=== PATIENT | female | born 1965 | race Caucasian/White ===

== ENCOUNTER 2018-07-10 21:04 | Observation (INO) ==
[2018-07-10] MEDS ORDERED: levETIRAcetam 1,000 MG in 0.9 % Sodium Chloride 100 ML IVPB ONE (21:10)
--- NOTE | 2018-07-10 21:15 | Emergency Department Note ---
Disposition Clinical Impression: Generalized seizure Altered mental status Qualifiers: Altered mental status type: disorientation Qualified Code(s): R41.0 - Disorientation, unspecified Disposition: Admitted As Inpatient Condition: Undetermined Time of Disposition: 00:11 Seizure HPI - General Chief Complaint: ED Seizure Stated Complaint: Siezure Time Seen by Provider: 07/10/18 21:09 Source: patient, EMS Mode of arrival: EMS Limitations: other (Post-ictal) Nursing Notes Reviewed: Yes Vital Signs Reviewed: Yes - History of Present Illness HPI Narrative: 53-year-old female with history of seizures arrives to the emergency department after having a tonic-clonic seizure that lasted roughly 5 minutes according to patient's son. The patient does have a history of seizures and was previously on medications but is not on any medications at this time. The patient is unaware of why she was taken off her medications. EMS was called after the patient had a seizure and noted the patient was post ictal. She was alert to person only at that time. By time she arrived to the emergency department she is alert to person, place, time and situation. She is answering questions appropriately but still feels confused consistent with post ictal behavior. The patient denies any recent sleep changes, illness, traumatic injury but she does state that she did hit her head a few weeks ago. The patient denies any other complaints at this time. She is not taking any other medications. She denies any chest pain, difficulty breathing, abdominal pain, fevers, cough, chills, headache, diarrhea, vomiting. She denies any alcohol or drug use. - Related Data Previous Rx's Medication Instructions Recorded Hydrocodone/Acetaminophen [[place] 1 each PO Q4-6H PRN #10 tablet 03/13/15 7.5-325 Tablet] predniSONE [Prednisone] 40 mg PO DAILY #10 tablet 03/13/15 OxyCODONE/APAP 5/325 [Percocet 1 each PO Q8HR PRN #6 tablet 04/08/15 5/325 MG] Amoxicillin/Clavulanate [Augmentin] 875 mg PO BIDWM #20 tablet 06/12/16 GuaiFENesin/Codeine [Robitussin 5 ml PO Q6HR PRN #120 ml 06/12/16 w/Codeine] RX: Loratadine/Pseudophed (12 HR) 1 each PO BID #20 tab.er.12h 06/12/16 [Claritin D (12HR)] Tramadol HCl [Ultram] 50 mg PO BID PRN #10 tab 07/03/16 LevETIRAcetam [Keppra] 500 mg PO DAILY #30 tablet 07/10/18 Allergies Allergy/AdvReac Type Severity Reaction Status Date / Time No Known Allergies Allergy Verified 03/13/15 14:45 All systems ED: reviewed and negative except as stated. Constitutional: Denies: fever, chills, weakness ENT ED: Denies: dysphagia Cardiovascular: Denies: chest pain Respiratory: Denies: dyspnea Gastrointestinal: Denies: abdominal pain Genitourinary: Denies: urgency Musculoskeletal: Reports: myalgia. Denies: back pain, neck pain Integumentary: Denies: rash Neurological: Reports: confusion. Denies: headache, weakness, numbness, paresthesias Past Medical History - Past Medical History Attestation: Yes The following information was validated with the patient. Source: patient, old records reviewed Medical history: Reports: no medical history Psychiatric history: Reports: depression - Social History Smoking Status: Current every day smoker Smokeless Tobacco Status: No Alcohol use: Reports: none Drug use: Reports: none Physical Exam - General Limitations: no limitations, other (mild post-ictal but answering questions appropriately) General appearance: alert, in no apparent distress - Head Head exam: atraumatic, normocephalic, normal inspection - Eye Eye exam: Present: normal appearance, PERRL, EOMI - ENT ENT exam: normal exam, normal oropharynx, mucous membranes moist - Neck Neck exam: Present: normal inspection, full ROM, trachea midline - Chest Chest inspection: Present: normal inspection, symmetric chest wall rise - Respiratory Respiratory exam: Present: normal lung sounds bilaterally - Cardiovascular Cardiovascular exam: Present: regular rate, normal rhythm, normal heart sounds - Abdominal Exam Abdominal exam: Present: soft, Non-Tender. Absent: tenderness, distention, guarding, rebound, rigidity - Extremities Exam Extremities exam: Present: normal inspection, full ROM. Absent: tenderness, pedal edema - Neurological Exam Neurological exam: Present: alert, oriented X3, CN II-XII intact - Expanded Neurological Exam Patient oriented to: Present: person, place, time Speech: Present: fluid speech Cranial nerves: EOM function (II, III, IV, ): Normal, facial sensation (V): Normal, facial palsy (VII): Normal Motor strength - LUE: 5/5 Motor strength - RUE: 5/5 Motor strength - LLE: 5/5 Motor strength - RLE: 5/5 Sensory exam upper extremity: light touch: Normal Sensory exam lower extremity: light touch: Normal Coma Scale Eye Opening: Spontaneous Coma Scale Motor Response: Obeys Commands Coma Scale Verbal Response: Oriented Coma Scale Total: 15 - Skin Skin exam: Present: warm, dry, intact, normal color Course Vital Signs Temperature 98.8 F 07/10/18 21:16 Pulse Rate 102 07/10/18 21:16 Respiratory Rate 18 07/10/18 21:16 Blood Pressure 137/102 07/10/18 21:16 O2 Sat by Pulse Oximetry 96 07/10/18 21:16 Temperature 98.8 F 07/10/18 21:16 Pulse Rate 87 07/10/18 22:00 Respiratory Rate 18 07/10/18 21:16 Blood Pressure 119/88 07/10/18 22:00 O2 Sat by Pulse Oximetry 97 07/10/18 22:00 Oxygen Delivery Oxygen Delivery Room Air Seizure - MDM Narrative Medical decision making narrative: Patient reevaluated and states that she is confused but upon further conversation she states she is confused about how she got to the hospital and what happened. Was explained to her that she had a seizure and that this confusion with regards to what happened and how she had a hospitals normal. The patient is lucid and understanding exactly the situation. She agrees that she feels safe being discharged at this time. The patient was given a loading dose of Keppra in the emergency department. She had lab work and head CT which demonstrates no acute process. The patient continues to remain confused in the emergency department. One of ED staff who is very familiar with the patient and is known the patient all her life, the patient did not recognize. Given the continued confusion combined with the seizure that was prolonged, we will admit the patient to the hospital for observation at this time. Patient made aware and agrees to plan. No further questions or concerns noted. Accepted by Dr. Harrison. - Lab Data Lab results reviewed: Yes I reviewed the patient's lab results. Result diagrams: 07/10/18 21:23 07/10/18 21:23 Lab Results 12/30/18 12/30/18 Range/Units 21:23 21:23 WBC 10.2 (4.3-11.1) K/mcL RBC 4.16 (3.82-4.97) M/mcL Hgb 13.0 (11.5-15.4) g/dL Hct 38.2 (35.3-44.9) % MCV 91.8 (83.0-100.0) fL MCH 31.3 (28.0-33.3) pg MCHC 34.0 (31.6-35.5) g/dL RDW 13.3 (11.5-14.5) % Plt Count 297 (140-400) K/mcL MPV 10.1 (9.4-12.4) fL Immature Gran % 0.2 (0-4) % Seg Neutrophils % 39.4 % Lymphocytes % 50.4 % Monocytes % 8.0 % Eosinophils % 1.5 % Basophils % 0.5 % Neutrophils # 4.0 (1.6-8.9) K/mcL Lymphocytes # 5.2 H (0.6-4.6) K/mcL Monocytes # 0.8 (0.0-1.3) K/mcL Eosinophils # 0.2 (0.0-0.6) K/mcL Basophils # 0.1 (0.0-0.2) K/mcL Sodium 141 (136-145) mEq/L Potassium 3.4 L (3.5-5.1) mEq/L Chloride 107 (98-107) mEq/L Carbon Dioxide 19 L (23-29) mEq/L BUN 18 (6-20) mg/dL Creatinine 1.01 (0.60-1.20) mg/dL Est GFR ( Amer) > 60 (> 60) Est GFR (Non-Af Amer) 57 L (> 60) BUN/Creatinine Ratio 18 (6-26) Glucose 85 (70-105) mg/dL Calculated Osmolality 293 (280-300) Calcium 9.2 (8.6-10.3) mg/dL - Radiology Data Radiology results reviewed: Yes I reviewed the patient's radiology results. Head CT 07/10/18 21:10 IMPRESSION: No acute intracranial abnormality. D/ / Manny Toth MD / Manny Toth MD Interpreting Provider: Manny Toth MD - EKG Data EKG attestation: Yes I reviewed and interpreted this EKG. EKG results narrative: Heart rate 101 beats for minute. Sinus tachycardia. No ST elevation but possible ST depression versus artifact. Difficult to assess due to artifact that is on EKG. There is some ST segment [place] others that are at baseline. No other acute changes noted. Attestation Statement - Attestation Attestation: Resident Attestation: I examined this patient and my medical decision making was reviewed with the Resident Physician. I agree with the documented findings, disposition and treatment plan as described except to the extent set forth below. We independently had [id number] contact with the patient. Patient presents emergency department after having seizure lasting approximately 5 minutes. No seizure disorder. States she is taken off her previous medication which she states was Dilantin. Unknown why. Patient is upset as she is confused and appears to be in postictal state. Her workup for seizure including electrolytes as well as a CT scan of her head will be performed. Patient returns back to baseline she will likely be up to go home. He changes in clinical status or continued confusion will require admission. Patient knows her name and where she is but is confused to date. No focal deficits on exam. Patient has no complaints at this time other than she feels confused and is anxious about this.
[2018-07-10] MEDS ORDERED: 0.9 % Sodium Chloride 1,000 ML IVC ONE (21:31)
[2018-07-10 21:44] LABS: Basophils # 0.1 K/mcL (0.0-0.2); Basophils % 0.5 %; Eosinophils # 0.2 K/mcL (0.0-0.6); Eosinophils % 1.5 %; Hematocrit 38.2 % (35.3-44.9); Immature Granulocytes % 0.2 % (0-4); Lymphocytes # 5.2 K/mcL (0.6-4.6); Lymphocytes % 50.4 %; Mean Corpuscular Hemoglobin 31.3 pg (28.0-33.3); Mean Corpuscular Volume 91.8 fL (83.0-100.0); Mean Platelet Volume 10.1 fL (9.4-12.4); Monocytes # 0.8 K/mcL (0.0-1.3); Platelet Count 297 K/mcL (140-400); Red Blood Count 4.16 M/mcL (3.82-4.97); Red Cell Distribution Width 13.3 % (11.5-14.5); Segmented Neutrophils % 39.4 %
[2018-07-10 22:13] LABS: BUN/Creatinine Ratio 18 (6-26); Blood Urea Nitrogen 18 mg/dL (6-20); Calcium 9.2 mg/dL (8.6-10.3); Carbon Dioxide 19 mEq/L (23-29); Chloride 107 mEq/L (98-107); Glucose 85 mg/dL (70-105); Osmolality,Calculated 293 (280-300); Potassium 3.4 mEq/L (3.5-5.1); Sodium 141 mEq/L (136-145); eGFR For Non-African Americans 57 (> 60)
[2018-07-11] MEDS ORDERED: Naloxone 0.4 MG/ML INJ IVP PRN (00:12)
--- NOTE | 2018-07-11 00:43 | Internal Med History&Physical ---
Date of Encounter: 07/11/18 Time of Encounter: 00:38 Internal Medicine - H&P: HPI Chief complaint: Seizure Admitted From: Home Plans for Post Hospital Care: Home History of present illness: Ms. Mtz is a 53 year old female with PMH of Seizure disorder (seizures said to have started in 2005), CAD s/p stents. She reports having had multiple strokes and "14 heart attacks". Last seizure was said to have been several years ago. She states she took medications for seizures but she was taken off of them. She denies knowing what happened prior to arrival here and states she was told she was having a seizure. At my time of review, she is AAOX3, and able to make a meaningful conversation. She denies preceding trauma. She denies n/v/d, no GI symptoms, she has no chest pain. she has no SOB. She has no symptoms. Her only symptom at this time is low back pain. She denies any known allergies . She reports taking only a baby aspirin at home She denies any illicit drug use Work up in the ER including a head CT was unremarkable. She has mild hypokalemia She will be placed on observation for breakthrough seizure She is full code Past Med Surg Social Fam HX - Past Medical History Medical history: no medical history Psychiatric history: depression - Social History Smoking Status: Current every day smoker Smokeless Tobacco Status: No Alcohol use: none Drug use: none - Family History Mother Living Status: Hx Family Cardiac Disorders: Yes ([place]) Father Living Status: Still Living Hx Family Cardiac Disorders: Yes (HTN) Internal Medicine - H&P: Meds Hydrocodone/Acetaminophen [[place] 7.5-325 Tablet] 1 each PO Q4-6H PRN #10 tablet 03/13/15 [Rx] predniSONE [Prednisone] 40 mg PO DAILY #10 tablet 03/13/15 [Rx] OxyCODONE/APAP 5/325 [Percocet 5/325 MG] 1 each PO Q8HR PRN #6 tablet 04/08/15 [Rx] Amoxicillin/Clavulanate [Augmentin] 875 mg PO BIDWM #20 tablet 06/12/16 [Rx] GuaiFENesin/Codeine [Robitussin w/Codeine] 5 ml PO Q6HR PRN #120 ml 06/12/16 [Rx] Loratadine/Pseudophed (12 HR) [Claritin D (12HR)] 1 each PO BID #20 tab.er.12h 06/12/16 [Rx] Tramadol HCl [Ultram] 50 mg PO BID PRN #10 tab 07/03/16 [Rx] LevETIRAcetam [Keppra] 500 mg PO DAILY #30 tablet 07/10/18 [Rx] Allergy/AdvReac Type Severity Reaction Status Date / Time No Known Allergies Allergy Verified 03/13/15 14:45 All Systems PM: A 10-system review of systems was performed and is negative for pertinent findings except as documented above in the HPI. - Constitutional Constitutional: no chills, no fever(s), no night sweats - EENT Eyes: no change in vision, no discharge, no pain, no photophobia Ears: no ear discharge, no ear pain, no tinnitus Nose, mouth and throat: no dysphagia, no nasal discharge, no neck pain, no sore throat - Cardiovascular Cardiovascular ROS IM: no chest pain, no diaphoresis, no dyspnea, no lightheadedness, no palpitations, no syncope - Respiratory Respiratory: no cough, no dyspnea, no wheezing, no excessive phlegm production - Gastrointestinal Gastrointestinal: no abdominal pain, no diarrhea, no hematemesis, no hematochezia, no melena, no nausea, no vomiting - Genitourinary Genitourinary: no change in urinary stream, no dysuria, no flank pain, no hematuria - Musculoskeletal Musculoskeletal ROS IM: no numbness, no tingling - Integumentary Integumentary IM: no rash, no unusual bruising - Neurological Neurological ROS: no confusion, no convulsions, no focal weakness, no numbness, no tingling, no tremor(s) - Hematologic/Lymphatic Hematologic/Lymphatic: no easy bruising - Constitutional Vitals: Temp Pulse Resp BP Pulse Ox 98.8 F 73 16 135/96 98 07/10/18 21:16 07/11/18 00:28 07/11/18 00:28 07/11/18 00:28 07/11/18 00:28 General appearance: Present: A&O X 3, pleasant, no acute distress Exam: see below - Head Head exam: Present: atraumatic, normocephalic - Eye Eye exam: Present: PERRL, conjuntiva pink, sclera anicteric Pupils: Present: PERRL - Neck Neck exam general surgery: Present: supple, trachea midline. Absent: lymphadenopathy - Respiratory Respiratory exam: Present: CTAB. Absent: accessory muscle use, rales, rhonchi, wheezes - Cardiovascular Cardiovascular exam: Present: RRR, +S1, +S2. Absent: diastolic murmur, gallop, rubs, systolic murmur - GI/Abdominal GI/Abdominal exam: Present: normal bowel sounds, soft, no peritoneal signs. Absent: distended, tenderness - Extremities Exam Extremities exam: Present: warm, radial pulses palpable and symmetrical. Absent: calf tenderness, cyanotic, pedal edema - Neurological Exam Neurological exam: Present: CN II-XII intact, oriented X3, no focal deficits. Absent: pronater drift, facial droop, speech deficit - Skin Skin exam: Present: dry, intact Internal Med - H&P Results - Labs CBC & Chem 7: 07/10/18 21:23 07/10/18 21:23 Labs: Short CBC 07/10/18 Range/Units 21:23 WBC 10.2 (4.3-11.1) K/mcL Hgb 13.0 (11.5-15.4) g/dL Hct 38.2 (35.3-44.9) % Plt Count 297 (140-400) K/mcL Neutrophils # 4.0 (1.6-8.9) K/mcL BMP 07/10/18 21:23 Sodium 141 Potassium 3.4 L Chloride 107 Carbon Dioxide 19 L BUN 18 Creatinine 1.01 Glucose 85 Calcium 9.2 - Impressions ITS Impressions Head CT 07/10/18 21:10 IMPRESSION: No acute intracranial abnormality. D/ / Manny Toth MD / Manny Toth MD Interpreting Provider: Manny Toth MD - Assessment and plan (1) Breakthrough seizure Current Visit: Yes Status: Acute Assessment and plan: Patient with self reported hx of seizures, not on any medications Chart review (PCI) shows some admissions for pseudoseizure/conversion disorder??? Patient with negative work up so far Seizure had resolved prior to arrival AAOX4 at time of review Obtain Utox received 1g keppra in ER, Continue keppra po till neurology evaluation Seizure precautions neurology eval a.m-day team to call brain CT and chem is unremarkable (2) Hypokalemia Current Visit: Yes Status: Acute Assessment and plan: replaced po continue to monitor - Time Spent With Patient Total time spent is greater than 50% in coordination of care (as documented) at patient's floor/unit and/or counseling patient:
[2018-07-11] MEDS: levETIRAcetam 250 MG TABLET PO SCH ×2 (05:25→17:33)
[2018-07-11] MEDS: *HR* Enoxaparin 40 MG/0.4 ML SYRINGE SQ SCH (05:25)
[2018-07-11] MEDS: Ibuprofen 400 MG TABLET PO PRN ×3 (05:26→22:23)
[2018-07-11] MEDS ORDERED: Acetaminophen IV 1,000 MG/100 ML INFUS..BTL IVPB ONE (09:02)
--- NOTE | 2018-07-11 09:42 | Neurology - Consult Note ---
<Jose E Guardado - Last Filed: 07/11/18 14:16> Date of Encounter: 07/11/18 Time of Encounter: 09:42 Assessment and Plan (1) Seizure Current Visit: Yes Status: Acute - Presented with tonic-clonic activity lasting approximately 5 minutes - Patient has a known history of seizure disorder since 2005 - She was reportedly on seizure medication at some point, but was taken off for an unknown reason - Patient was given loading dose of Keppra in the emergency department - Started on Keppra 500 mg by mouth every 12 hours; continue medications - CT scan of the head demonstrated no acute abnormalities Plan: - Urine toxicology screen has been ordered - Continue Keppra - Will order an EEG History of Present Illness HPI: Shaneka Mtz is a 53-year-old female with a PMH of seizure disorder since 2005, CAD status post stents who presented to [facility] ED on 07/10/18 with chief complaint of a tonic-clonic seizure that lasted approximately 5 minutes according the patients son. Patient has a known history of seizures since 2005. Denied being on any medications. Patients son reported that he is unaware of exactly why she was taken off her medications. When EMS arrived, patient was noted to be post ictal. Was only alert to person at that time. Per chart review, 1 patient arrived to the emergency department, she was A&O 4. She reported that she had hit her head a few weeks ago. Upon arrival, vital signs were as follows: Temperature 98.8, pulse 102, respiratory rate 18, blood pressure 137/102, and O2 sat was 96. Laboratory analysis was significant for a low potassium at 3.4. CT scan of the head demonstrated no acute abnormalities. Patient was seen and examined at bedside. Patient is in mild distress. She states that she has been intermittently confused since her stay in the hospital. Currently, she is alert and oriented 3. She says that this last seizure that she experienced is unlike any previous that she had experienced before. She claims that she was on antiseizure medication, but that she was taken off because she had not had any seizures while on the medication. She currently denies having any visual disturbances, numbness, tingling, paresthesias, headache, dizziness, vertigo, weakness, or fatigue. No further complaints at this time. Past Med Surg Social Fam HX - Past Medical History Medical history: no medical history Additional medical history: Lupus Psychiatric history: depression - Past Surgical History Surgical History: appendectomy - Social History Smoking Status: Current every day smoker Smokeless Tobacco Status: No Alcohol use: none Drug use: none - Family History Mother Living Status: Hx Family Cardiac Disorders: Yes ([place]) Father Living Status: Still Living Hx Family Cardiac Disorders: Yes (HTN) Medications and Allergies LevETIRAcetam [Keppra] 500 mg PO DAILY #30 tablet 07/10/18 [Rx] Allergy/AdvReac Type Severity Reaction Status Date / Time No Known Allergies Allergy Verified 07/11/18 13:42 All Systems: The remainder of the systems were reviewed and are negative - Constitutional Constitutional ROS IM: as per HPI, no fatigue, no lethargy, no weakness - Nose, Mouth, Throat Nose, mouth and throat: no dizziness - Musculoskeletal Musculoskeletal ROS IM: as per HPI, no myalgias, no numbness, no stiffness, no tingling - Neurological Neurological ROS: as per HPI, no abnormal speech, no dizziness, no focal weakness, no headache(s), no loss of vision, no numbness, no restless legs, no syncope, no tingling, no vertigo, no weakness, no other visual disturbances - Psychiatric Psychiatric general PM: as per HPI, anxiety Physical Examination - Vital Signs Vital Signs: Initial Vital Signs Temp Pulse Resp BP Pulse Ox 98.8 F 102 18 137/102 96 07/10/18 21:16 07/10/18 21:16 07/10/18 21:16 07/10/18 21:16 07/10/18 21:16 - Constitutional General appearance: comfortable - Neurologic Sensorimotor examination: intact Motor examination - right side: 5/5: deltoids, biceps, triceps, wrist flexion, wrist extension, 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, toe extension (EHL), plantarflexion Motor examination - left side: 5/5: deltoids, biceps, triceps, wrist flexion, wrist extension, 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, toe extension (EHL), plantarflexion Detailed sensory examination: intact Reflexes: Brachioradialis: 2+, Patella: 2+ Mental Status Examination: awake, alert, oriented to person, oriented to place, oriented to time, follows commands appropriately, answers questions ap propriately Cranial nerve examination: PERRL, EOMI, visual ferro intact Results - Laboratory Findings CBC and BMP: 07/10/18 21:23 07/10/18 21:23 Abnormal lab findings: Abnormal lab results Lymphocytes # 5.2 K/mcL (0.6-4.6) H 07/10/18 21:23 Potassium 3.4 mEq/L (3.5-5.1) L 07/10/18 21:23 Carbon Dioxide 19 mEq/L (23-29) L 07/10/18 21:23 Est GFR (Non-Af Amer) 57 (> 60) L 07/10/18 21:23 Consult Discharge Plan - Plan Referrals: Mikhail Rutherford DO [Partnered Physician] - NONE,PCP [Primary Care Provider] - <Al Dhillon - Last Filed: 07/11/18 18:04> Date of Encounter: 07/11/18 Time of Encounter: 17:55 Assessment and Plan (1) Seizure Current Visit: Yes Status: Acute I am somewhat skeptical about the prior history of seizure. If patient truly had recurrent episodes of seizure requiring long-term medication treatment I would not expect this to resolve spontaneously in most instances. I will obtain an EEG as well as an MRI scan of the brain. Urine tox screen is yet pending. For now we will maintain the Keppra 500 mg twice a day. History of Present Illness HPI: The chart was reviewed, the patient was seen and examined independently. Case was discussed with the neurology resident on service. I agree with his assessment as stated above. However the patient's seizure history is poorly documented. I do not see where she is already been seen by any the neurologist in our group. Apparently she has had seizures since 2005. She is not certain who started her on seizure medication however I do see where she was on Dilantin at some point she is not aware of why the medication was discontinued. She is a poor historian. She denies any tongue trauma denies loss of bladder or bowel continence during the episode. She informs me that she has had a stroke. She does have weakness of the left upper and left lower extremities however the CT scan was normal. All Systems: The remainder of the systems were reviewed and are negative Review of Systems: The balance of the systems review is negative. Physical Examination - Vital Signs Vital Signs: Initial Vital Signs Temp Pulse Resp BP Pulse Ox 98.8 F 102 18 137/102 96 07/10/18 21:16 07/10/18 21:16 07/10/18 21:16 07/10/18 21:16 07/10/18 21:16 - Exam Exam: General Examination: *CONSTITUTIONAL: normal *GENERAL APPEARANCE OF PATIENT appears healthy and well groomed *EYES: pupils equal, round, reactive to light and accommodation, conjunctiva clear without masses or ulcerations, fundi normal. *CARDIOVASCULAR no peripheral edema, distal temperature normal, dorsalis pedis pulses normal. Refer to vital signs Musculoskeletal: *GAIT AND STATION WERE not assessed. *ASSESSMENT OF MUSCLE STRENGTH IN THE UPPER AND LOWER EXTREMITIES she has significant weakness of all muscles of the left upper and left lower extremity. However she has normal tone of the left upper and left lower extremities. She has normal strength bulk and tone of the right upper and right lower extremities. *MUSCLE TONE IN THE UPPER AND LOWER EXTREMITIES normal. No abnormal movements, fasciculations or atrophy identified. Neurological: *ORIENTATION to time and place *RECURRENT AND REMOTE MEMORY intact *ATTENTION AND CONCENTRATION seem to be somewhat impaired perhaps medication or other substances. *LANGUAGE FUNCTION no significant aphasia or dysarthia was noted. *FUND OF KNOWLEDGE she is not able to give a good history of her prior medical problems. Cannot tell me specifically details about diagnosed with seizures and who started her on seizure medication. *MENTAL attention span and concentration normal. *CN II optic fundi were normal, no papilledema noted. *CN III,IV, PERRLA extraocular eye movements were full, no nystagmus and no ptosis noted. *CN V shows normal sensation and jaw opens symmetrically. *CN VII shows normal facial movement symmetrically, upper and lower gisell aterally. *CN VIII shows no significant hearing loss on examination in the office. *CN IX,,X palate elevated symmetrically and normal gag reflex was noted. *CN XI normal strength in the sternocleidomastoid muscles, symmetrical shoulder shrugging. *CN XII tongue protruded in the midline, with normal strength and movement. *SENSORY EXAMINATION pinprick sensation intact, and light touch(vibration sense). *REFLEXES: deep tendon reflexes were normal and symmetrical , grade 2/4 diffusely, no pathological reflexes were noted. *CEREBELLAR TESTING normal finger to nose, heel/knee/brink, and tandem walk. *PAIN LEVEL -she does complain of left shoulder pain. Results - Laboratory Findings CBC and BMP: 12/30/18 21:23 07/10/18 21:23 Abnormal lab findings: Abnormal lab results Lymphocytes # 5.2 K/mcL (0.6-4.6) H 07/10/18 21:23 Potassium 3.4 mEq/L (3.5-5.1) L 07/10/18 21:23 Carbon Dioxide 19 mEq/L (23-29) L 07/10/18 21:23 Est GFR (Non-Af Amer) 57 (> 60) L 07/10/18 21:23
[2018-07-11] MEDS: Nicotine 21 MG PATCH.TD24 TD SCH ×2 (12:21→23:02)
--- NOTE | 2018-07-11 14:01 | Event Note ---
Date of Encounter: 07/11/18 Time of Encounter: 14:00 I have performed a face- to face examination of this patient and participated in follow-up care of this patient after being admitted by the hospitalist last night. This is a 53-year-old female with a prior history of seizure disorder who had been off her seizure medications and presented this time with a new generalized tonic-clonic seizure. She has been loaded with Keppra in the ER and is currently on Keppra twice a day. A toxicology screen is pending at the time of this note. Neurology has been consulted and their final input is pending. We will order a 20 minute EEG at the bedside and continue to monitor the patient. Seizure precautions and affect. So far the patient is doing well.
[2018-07-11] MEDS ORDERED: traMADol 50 MG TABLET PO PRN (17:47)
[2018-07-11 18:34] LABS: Amphetamine Screen,Urine Negative ng/mL (Cutoff=1000); Barbiturate Screen,Urine Negative ng/mL (Cutoff=200); Benzodiazepines Screen,Urine Negative ng/mL (Cutoff=200); Cannabinoid Screen,Urine Positive ng/mL (Cutoff = 50); Cocaine Screen,Urine Negative ng/mL (Cutoff= 300); Opiate Screen,Urine Negative ng/mL (Cutoff=300); Phencyclidine Screen,Urine Negative ng/mL (Cutoff=25)
--- NOTE | 2018-07-11 23:21 | Event Note ---
Date of Encounter: 07/11/18 Time of Encounter: 20:53 Notified by nurse of patient complaining of continued back pain, ordered lidocaine patch. Then later notified by nurse of patient complaining that her lungs feel full, that she feels her abdomen is bloated, that she has chest pressure, and also needs her nicotine patch replaced. Continues to have multiple vague complaints. Per nurse lungs clear, abdomen soft and non distended, appears in no acute distress, and vitals stable. EKG obtained and reviewed, shows sinus rhythm. Nurse to monitor closely and notify of any changes.
[2018-07-12 04:47] LABS: BUN/Creatinine Ratio 16 (6-26); Blood Urea Nitrogen 11 mg/dL (6-20); Calcium 8.5 mg/dL (8.6-10.3); Carbon Dioxide 22 mEq/L (23-29); Chloride 113 mEq/L (98-107); Glucose 82 mg/dL (70-105); Osmolality,Calculated 290 (280-300); Potassium 3.8 mEq/L (3.5-5.1); Sodium 141 mEq/L (136-145); eGFR For Non-African Americans > 60 (> 60)
[2018-07-12] MEDS: *HR* Enoxaparin 40 MG/0.4 ML SYRINGE SQ SCH (06:00)
[2018-07-12] MEDS: levETIRAcetam 250 MG TABLET PO SCH ×2 (06:00→16:47)
[2018-07-12] MEDS: Nicotine 21 MG PATCH.TD24 TD SCH (07:56)
--- NOTE | 2018-07-12 11:48 | Event Note ---
Date of Encounter: 07/12/18 Time of Encounter: 11:47 I have performed a face- to face examination of this patient and participated in formulation of lockett components of Assessment and plan with the Resident. Patient does not have any new seizure-like events. Neurology consultation appreciated. EEG is pending at this point. We will await follow-up from neurology today before making any discharge planning. She will continue to be on Keppra twice a day. Her long-term antiseizure medication use is questionable raised on her history-at one point it is noted that she thought she was on Dilantin but is difficult to find documentation on that . I did mention to her that whenever she is discharged she is to refrain from driving until cleared by neurology. We will continue to follow with neurology. Examination-fuentes the patient does not have any neuro deficits, gait is normal, normal cardiovascular and respiratory examination Rest of the assessment and plan as per resident documentation
--- NOTE | 2018-07-12 12:18 | Internal Med Progress Note ---
<Nelson Hdz P - Last Filed: 07/12/18 13:02> Hospitalist Progress Note - Encounter Date of Encounter: 07/12/18 Time of Encounter: 11:00 - Subjective Interval History: This is 53 years old female with past medical history of seizure disorder started in 2005, CAD s/p stent, she stated that she has multiple strokes,this time she was presented to ED for seizure disorder. She was admitted for evaluation, assessment for seizure and neurological consultation. CT scan done in ED did not show any acute intracranial abnormality, MRI head and brain did not show any acute intracranial abnormality and cause for seizure. Today during my bedside visit, she was lying comfortably on the bed, well oriented to time place and person and answering questions appropriately, not in acute distress. She denied any new complaints. She did not have any episode of seizure after she admitted in hospital. She described that she is progressively getting well. Neurology consultation has been done. We are waiting EKG and neurology advice for discharge. Her vitals are stable: Present 97.3 pulse 61 and regular blood pressure 122/75 saturation 97% in room air. - Exam Vitals: Temp Pulse Resp BP Pulse Ox 97.3 F L 61 16 122/75 97 07/12/18 11:00 07/12/18 11:00 07/12/18 11:00 07/12/18 11:07/12/18 11:00 Exam: Gen: Alert, awake , Oriented to time,place and person Chest: Diminished BS b/l, No crackles, No rales, No wheezing Heart: S1S2+ RRR No Murmurs Abd: Soft, NT, BS + No organomegaly Ext: No edema, pulses are palpable, no tenderness Neuro: No focal neuro deficits, She has mild weakness in left side as compared right side may be sequale of possible past stroke , but no old docs/evidence suggestive of it Psych: Normal mood Skin: No rash - Assessment and Plan (1) Breakthrough seizure Current Visit: Yes Status: Acute Assessment and Plan: The patient had history of seizure since 2005, she was not on any seizure medication before, this was the first attack since last 1-1/2 year, she already got the loading dose of keppra at ED, and she is on Keppra 500 twice a day. no seizure after admission, Neurology consultation has been done, neuro team will review after EKG and MRI repot is back.MRI :No acute intracranial abnormality or finding to suggest etiology of seizure. (2) Hypokalemia Current Visit: Yes Status: Acute Assessment and Plan: The patient has low potassium level 3.4, it has been, up to 3.8 today after po tassium supplementation, we will closely monitor her potassium status. (3) DVT prophylaxis Current Visit: Yes Status: Acute Assessment and Plan: On Lovenox 40 SQ - Time Spent with Patient Total time spent is greater than 50% in coordination of care (as documented) at patient's floor/unit and/or counseling patient: Internal Medicine: Result - Labs CBC & Chem 7: 07/10/18 21:23 07/12/18 03:53 Labs: BMP 07/12/18 03:53 Sodium 141 Potassium 3.8 Chloride 113 H Carbon Dioxide 22 L BUN 11 Creatinine 0.70 Glucose 82 Calcium 8.5 L - Impressions Impressions Brain MRI 07/11/18 18:52 IMPRESSION: No acute intracranial abnormality or finding to suggest etiology of seizure. D/ / Vadim Esquivel / Vadim Esquivel Interpreting Provider: Vadim Esquivel Consult Discharge Plan - Plan Referrals: Mikhail Ruthefrord DO [Partnered Physician] - Prescriptions: RX: levETIRAcetam [Keppra] 500 mg PO Q12HR #60 tablet <Alana Squires G - Last Filed: 07/13/18 09:48> Hospitalist Progress Note - Encounter Date of Encounter: 07/13/18 - Exam Vitals: Temp Pulse Resp BP Pulse Ox 97.5 F L 55 18 126/83 98 07/13/18 07:02 07/13/18 07:02 07/13/18 07:02 07/13/18 07:02 07/13/18 07:39 - Assessment and Plan (1) Breakthrough seizure Current Visit: Yes Status: Acute (2) Hypokalemia Current Visit: Yes Status: Acute - Time Spent with Patient Total time spent is greater than 50% in coordination of care (as documented) at patient's floor/unit and/or counseling patient: Internal Medicine: Result - Labs CBC & Chem 7: 07/10/18 21:23 07/13/18 04:38 Labs: BMP 07/13/18 04:38 Sodium 140 Potassium 4.1 Chloride 110 H Carbon Dioxide 25 BUN 17 Creatinine 0.79 Glucose 100 Calcium 9.0 - Attending Attestation I have performed a face- to face examination of this patient and participated in formulation of lockett components of Assessment and plan with the Resident. Patient does not have any new seizure-like events. Neurology consultation appreciated. EEG is pending at this point. We will await follow-up from neurology today before making any discharge planning. She will continue to be on Keppra twice a day. Her long-term antiseizure medication use is questionable raised on her history-at one point it is noted that she thought she was on Dilantin but is difficult to find documentation on that . I did mention to her that whenever she is discharged she is to refrain from driving until cleared by neurology. We will continue to follow with neurology. Examination-fuentes the patient does not have any neuro deficits, gait is normal, normal cardiovascular and respiratory examination Rest of the assessment and plan as per resident documentation
--- NOTE | 2018-07-12 12:36 | Neurology Progress Note ---
Date of Encounter: 07/12/18 Time of Encounter: 12:33 Assessment and Plan (1) Seizure Current Visit: Yes Status: Acute In this juncture I am not absolutely convinced that she is truly had an epileptic seizure. The history is somewhat nebulous and poorly documented. In any regard I will complete an EEG prior to discharge. The MRI scan of the brain reveals an old right thalamic infarct however this would not be expected to call seizure activity. The MRI is otherwise reveals no evidence of a lesion I would expect to cause seizures. After discharge likely obtain a 24-hour Holter 48 hour ambulatory EEG. Ultimately also concerned that compliance issues may continue to complicate the picture. We will maintain her on levetiracetam for now. The case was discussed with the medicine attending and resident. Subjective Interval history: The chart was reviewed, the patient was seen and examined. No further seizure activity reported overnight. Patient reports that she is "more tired than usual". The MRI study reveals an old right thalamic infarct. However there is no other evidence of any other infarct or any other process that might explain reason for her to have seizures. The EEG is yet pending. Objective - Constitutional Vitals: Temp Pulse Resp BP Pulse Ox 97.3 F L 61 16 122/75 97 07/12/18 11:00 07/12/18 11:00 07/12/18 11:00 07/12/18 11:07/12/18 11:00 - Neurological Exam Sensorimotor examination: Present: intact Sensation intact: Present: intact Mental Status Examination: Present: awake, alert, oriented to person, oriented to place, oriented to time, follows commands appropriately, answers questions appropriately Cranial nerve examination: Present: PERRL, EOMI, visual ferro intact Additional comments: Exam: General Examination: *CONSTITUTIONAL: normal *GENERAL APPEARANCE OF PATIENT appears healthy and well groomed *EYES: pupils equal, round, reactive to light and accommodation, conjunctiva clear without masses or ulcerations, fundi normal. *CARDIOVASCULAR no peripheral edema, distal temperature normal, dorsalis pedis pulses normal. Refer to vital signs Musculoskeletal: *GAIT AND STATION WERE not assessed. *ASSESSMENT OF MUSCLE STRENGTH IN THE UPPER AND LOWER EXTREMITIES she has significant weakness of all muscles of the left upper and left lower extremity. However she has normal tone of the left upper and left lower extremities. She has normal strength bulk and tone of the right upper and right lower extremities. *MUSCLE TONE IN THE UPPER AND LOWER EXTREMITIES normal. No abnormal movements, fasciculations or atrophy identified. Neurological: *ORIENTATION to time and place *RECURRENT AND REMOTE MEMORY intact *ATTENTION AND CONCENTRATION seem to be somewhat impaired perhaps medication or other substances. *LANGUAGE FUNCTION no significant aphasia or dysarthia was noted. *FUND OF KNOWLEDGE she is not able to give a good history of her prior medical problems. Cannot tell me specifically details about diagnosed with seizures and who started her on seizure medication. *MENTAL attention span and concentration normal. *CN II optic fundi were normal, no papilledema noted. *CN III,IV, PERRLA extraocular eye movements were full, no nystagmus and no ptosis noted. *CN V shows normal sensation and jaw opens symmetrically. *CN VII shows normal facial movement symmetrically, upper and lower bilaterally. *CN VIII shows no significant hearing loss on examination in the office. *CN IX,,X palate elevated symmetrically and normal gag reflex was noted. *CN XI normal strength in the sternocleidomastoid muscles, symmetrical shoulder shrugging. *CN XII tongue protruded in the midline, with normal strength and movement. *SENSORY EXAMINATION pinprick sensation intact, and light touch(vibration sense). *REFLEXES: deep tendon reflexes were normal and symmetrical , grade 2/4 diffusely, no pathological reflexes were noted. *CEREBELLAR TESTING normal finger to nose, heel/knee/brink, and tandem walk. *PAIN LEVEL -she does complain of left shoulder pain. Results - Laboratory Findings CBC and BMP: 07/10/18 21:23 07/12/18 03:53 Abnormal lab findings: Abnormal lab results Lymphocytes # 5.2 K/mcL (0.6-4.6) H 07/10/18 21:23 Chloride 113 mEq/L (98-107) H 07/12/18 03:53 Carbon Dioxide 22 mEq/L (23-29) L 07/12/18 03:53 Calcium 8.5 mg/dL (8.6-10.3) L 07/12/18 03:53 U Marijuana (THC) Screen Positive ng/mL (Cutoff = 50) H 07/11/18 17:30 Consult Discharge Plan - Plan Referrals: Mikhail Rutherford DO [Partnered Physician] - Prescriptions: levETIRAcetam [Keppra] 500 mg PO Q12HR #60 tablet
[2018-07-12] MEDS: Ibuprofen 400 MG TABLET PO PRN (15:20)
[2018-07-12] MEDS ORDERED: Ondansetron 4 MG/2 ML VIAL IVP PRN (21:37)
[2018-07-13] MEDS: *HR* Enoxaparin 40 MG/0.4 ML SYRINGE SQ SCH (05:54)
[2018-07-13] MEDS: levETIRAcetam 250 MG TABLET PO SCH (05:54)
[2018-07-13 06:03] LABS: BUN/Creatinine Ratio 22 (6-26); Blood Urea Nitrogen 17 mg/dL (6-20); Carbon Dioxide 25 mEq/L (23-29); Chloride 110 mEq/L (98-107); Glucose 100 mg/dL (70-105); Osmolality,Calculated 292 (280-300); Potassium 4.1 mEq/L (3.5-5.1); Sodium 140 mEq/L (136-145); eGFR For Non-African Americans > 60 (> 60)
[2018-07-13 07:07] VITALS: BP 126/83
[2018-07-13] MEDS: Nicotine 21 MG PATCH.TD24 TD SCH (07:38)
--- NOTE | 2018-07-13 09:41 | Internal Med Progress Note ---
<Nelson Hdz P - Last Filed: 07/13/18 09:37> Hospitalist Progress Note - Encounter Date of Encounter: 07/13/18 - Subjective Interval History: Today is second day of admission ,This 53 years old female with past medical history of seizure disorder started in 2005, CAD s/p stent, she stated that she has multiple strokes in the past ,this time she was presented to ED for seizure disorder. She was admitted for evaluation, assessment for seizure and neurological consultation. CT scan done in ED did not show any acute intracranial abnormality, MRI head and brain did not show any acute intracranial abnormality and cause for seizure ( ? old right thalamic infarct). Today during my bedside visit, she was lying comfortably on the bed, well pita ented to time place and person and answering questions appropriately, not in acute distress. She stated that she felt nauseated and vomited twice yesterday. She also stated that the vomitus was blood mixed, but she did not have any nausea and vomiting this morning, otherwise she is feeling better, no any new seizure or other neurological symptoms. Vitals are stable blood pressure 126/83, temperature normal ,pulse 55 saturation 98% in room air. Neurology has been continuously following her. Her EEG at bedside has been done today, neurology team is planning to do ambulatory EEG later to find out cause of the seizure. - Exam Vitals: Temp Pulse Resp BP Pulse Ox 97.5 F L 55 18 126/83 98 07/13/18 07:02 07/13/18 07:02 07/13/18 07:02 07/13/18 07:02 07/13/18 07:39 Exam: Gen: Alert, awake , Oriented to time,place and person Chest: Diminished BS b/l, No crackles, No rales, No wheezing Heart: S1S2+ RRR No Murmurs Abd: Soft, NT, BS + No organomegaly Ext: No edema, pulses are palpable, no tenderness Neuro: No focal neuro deficits, She has mild weakness in left side as compared right side may be sequale of possible past stroke , but no old docs/evidence suggestive of it . ( CT head and MRI finding look normal) Psych: Normal mood Skin: No rash - Assessment and Plan (1) Breakthrough seizure Current Visit: Yes Status: Acute Assessment and Plan: The patient had history of seizure since 2005, she was not on any seizure medication before this seizure episode , this was the first attack since last 1- 1/2 year, she already got the loading dose of keppra 1000 mg IV at ED, and she is on Keppra 500 twice a day. There is no seizure after admission, Neurology consultation has been done. CT head : no acute Intracranial pathology ,MRI :No acute intracranial abnormality or finding to suggest etiology of seizure( except ? old infarct in R thalamus). EEG has been done today and we are waiting for the report, neurology team has been planning to do ambulatory EEG later. (2) Hypokalemia Current Visit: Yes Status: Acute Assessment and Plan: The patient has low potassium level 3.4, it has been, up to 4.1 today after potassium supplementation, we will closely monitor her potassium status. (3) DVT prophylaxis Current Visit: Yes Status: Acute Assessment and Plan: She is on Lovenox 40 SQ for DVT prophylaxis - Time Spent with Patient Total time spent is greater than 50% in coordination of care (as documented) at patient's floor/unit and/or counseling patient: Internal Medicine: Result - Labs CBC & Chem 7: 07/10/18 21:23 07/13/18 04:38 Labs: BMP 07/13/18 04:38 Sodium 140 Potassium 4.1 Chloride 110 H Carbon Dioxide 25 BUN 17 Creatinine 0.79 Glucose 100 Calcium 9.0 Consult Discharge Plan - Plan Referrals: Ana Zarate DO [Resident] - 07/18/18 3:30 pm (Please arrive 30 min early to your appointment. Please bring your insurance card and photo ID with you to your appointment. If you need to reschedule or cancle your appointment you must give the office a 24 hour notice. Thank you. ) Al Dhillon DO [Partnered Physician] - (An appointment has been requested. The office will contact you at home to scheule an appointment. ) Prescriptions: levETIRAcetam [Keppra] 500 mg PO Q12HR #60 tablet <Alana Squires - Last Filed: 07/13/18 11:32> Hospitalist Progress Note - Encounter Date of Encounter: 07/13/18 Time of Encounter: 11:32 - Exam Vitals: Temp Pulse Resp BP Pulse Ox 97.5 F L 55 18 126/83 98 07/13/18 07:02 07/13/18 07:02 07/13/18 07:02 07/13/18 07:02 07/13/18 07:39 - Assessment and Plan (1) Breakthrough seizure Current Visit: Yes Status: Acute (2) Hypokalemia Current Visit: Yes Status: Resolved - Time Spent with Patient Total time spent is greater than 50% in coordination of care (as documented) at patient's floor/unit and/or counseling patient: Internal Medicine: Result - Labs CBC & Chem 7: 07/10/18 21:23 07/13/18 04:38 Labs: BMP 07/13/18 04:38 Sodium 140 Potassium 4.1 Chloride 110 H Carbon Dioxide 25 BUN 17 Creatinine 0.79 Glucose 100 Calcium 9.0 - Attending Attestation I have performed a face- to face examination of this patient and participated in formulation of lockett components of Assessment and plan with the Resident. Patient has not had any new seizure events. Planning for discharge today. Please refer to the discharge summary from today.
--- NOTE | 2018-07-13 10:39 | Discharge Summary ---
<Nelson Hdz P - Last Filed: 07/13/18 10:36> - NOTES TO OUTPATIENT PROVIDER Notes to Outpatient Provider: *She will follow-up with her primary care provider within a week. *She will follow-up with neurologist Dr Walton after a week. *She will continue Keppra 500 MG by mouth twice a day regularly. *She will not drive after she go home. Date of Encounter: 07/13/18 Time of Encounter: 10:00 - Discharge Diagnosis (1) Breakthrough seizure Priority: Primary Status: Acute Assessment and Plan: The patient had history of seizure since 2005, she was not on any seizure medication before this seizure episode , this was the first attack since last 1- 1/2 year, she already got the loading dose of keppra 1000 mg IV at ED, and she is on Keppra 500 twice a day. There is no seizure after admission, Neurology consultation has been done. CT head : no acute Intracranial pathology ,MRI :No acute intracranial abnormality or finding to suggest etiology of seizure( except ? old infarct in R thalamus). EEG has been done today and neurology team has been planning to do ambulatory EEG later after outpatient visit.She will follow up with Neurologist in one week . (2) Hypokalemia Priority: Primary Status: Resolved Assessment and Plan: Her hypokalemia has been resolved, her latest serum potassium is 4.1. (3) DVT prophylaxis Priority: Primary Status: Suspected Hospital course: Ms. Mtz is a 53 year old female with past medical history of seizure disorder started in 2005, CAD s/p stent, h/o multiple strokes in the past without clear documentation ,this time she was presented to ED for seizure disorder. She was admitted for evaluation, assessment for seizure and neurological consultation. CT scan Head done in ED did not show any acute intracranial abnormality, MRI head and brain did not show any acute intracranial abnormality and the cause for seizure ( ? old right thalamic infarct). Her labs while she is in in patient: White cell count 10.2, hemoglobin 13.0/hematocrit 38.2, serum sodium 140, potassium 4.1, BUN 17, creatinine 0.79, GFR more than 60, blood glucose 100, serum calcium 9.0, urine marijuana positive. The patient is seizure free since she admitted in inpatient, she is hemodynamically stable , no new complaints .Neurology consultation has been done and advised to continue Keppra 500 MG twice a day continuously and she will follow-up with neurologist in outpatient within a week. She will visit primary care provider in residency clinic within a week. - Time Spent with Patient Total time spent providing and/or coordinating discharge services: - Discharge Medications Prescriptions: levETIRAcetam [Keppra] 500 mg PO Q12HR #60 tablet Home Medications: levETIRAcetam [Keppra] 500 mg PO Q12HR #60 tablet 07/12/18 [Rx] Allergies/Adverse Reactions: Allergy/AdvReac Type Severity Reaction Status Date / Time No Known Allergies Allergy Verified 07/11/18 13:42 Date of admission: 07/11/18 00:28 Primary care physician: PCP NONE Consults: 07/13/18 09:37 Consult to Interpret Exam [CONS] Routine Consulting Provider: Al Dhillon Consult to Interpret Exam: Interpret EEG 07/11/18 00:13 Consult to Neurology [CONS] Routine Consulting Provider: [facility] Reason for Consult: Breakthrough seizure Call Completed: No - Constitutional Vitals: Temp Pulse Resp BP Pulse Ox 97.5 F L 55 18 126/83 98 07/13/18 07:02 07/13/18 07:02 07/13/18 07:02 07/13/18 07:02 07/13/18 07:39 General appearance: Present: A&O X 3, pleasant, no acute distress, answers questions appropriately Exam: Gen: Alert, awake , Oriented to time,place and person Chest: Diminished BS b/l, No crackles, No rales, No wheezing Heart: S1S2+ RRR No Murmurs Abd: Soft, NT, BS + No organomegaly Ext: No edema, pulses are palpable, no tenderness Neuro: No focal neuro deficits, She has mild weakness in left side as compared right side may be sequale of possible past stroke , but no old docs/evidence suggestive of it . ( CT head and MRI finding look normal) Psych: Normal mood Skin: No rash - Patient Status Disposition: Home, Self-Care Condition: Good - Discharge Instructions Follow Up With: Ana Zarate DO [Resident] - 07/18/18 3:30 pm (Please arrive 30 min early to your appointment. Please bring your insurance card and photo ID with you to your appointment. If you need to reschedule or cancle your appointment you must give the office a 24 hour notice. Thank you. ) Al Dhillon, DO [Partnered Physician] - (An appointment has been requested. The office will contact you at home to scheule an appointment. ) Additional Instructions: Absolutely no driving until seen and cleared by neurology as an outpatient. <ShawLebronhenryrodney Byrnes - Last Filed: 07/13/18 11:39> Date of Encounter: 07/13/18 - Discharge Diagnosis (1) Breakthrough seizure Status: Acute (2) Hypokalemia Status: Resolved Hospital course: Ms. Mtz is a 53 year old female - Time Spent with Patient Total time spent providing and/or coordinating discharge services: Date of admission: 07/11/18 00:28 Primary care physician: PCP NONE Consults: 07/13/18 09:37 Consult to Interpret Exam [CONS] Routine Consulting Provider: Al Dhillon Consult to Interpret Exam: Interpret EEG 07/11/18 00:13 Consult to Neurology [CONS] Routine Consulting Provider: [facility] Reason for Consult: Breakthrough seizure Call Completed: No - Constitutional Vitals: Temp Pulse Resp BP Pulse Ox 97.5 F L 55 18 126/83 98 07/13/18 07:02 07/13/18 07:02 07/13/18 07:02 07/13/18 07:02 07/13/18 07:39 - Patient Status Functional capacity at discharge: independent ambulation Overall status at discharge: patient is back to baseline - Diet and Activity Activity: other (No driving until seen by neurology as an outpatient) Diet: advance to your usual diet - Attending Attestation I have performed a face- to face examination of this patient and participated in formulation of lockett components of Assessment and plan with the Resident. This is a 49-year-old female who was admitted after a new generalized tonic- clonic seizures. The patient does claim that she has a known history of seizure disorder and was on Dilantin at one point-this has not been corroborated and neurology also was not sure of the diagnoses. Regardless given the fact that this was a witnessed episode of generalized tonic-clonic seizure, she was loaded with 1 g of Keppra in the ED and continued on 500 twice a day of Keppra and she deceived a 20 minute EEG results and adjust are pending and once those results are back she will be discharged home because she has been seizure-free. She has been asked to abstain from driving completely did not she follows up with neurology as an outpatient. She has been given prescriptions for 500 twice a day of Keppra. Imaging-fuentes there was an old thalamic infarct that was seen which is not new for the patient. She is to follow up closely with neurology as an outpatient and we will arrange an appointment with Dr. Dhillon. She will also need ambulatory EEG for further characterization of her seizures. Today on examination she does not have any new neuro deficits and her vital signs are stable. The rest of the assessment and plan as per resident documentation.
[2018-07-13] MEDS ORDERED: Ondansetron 4 MG/2 ML VIAL IVP ONE (14:39)
--- NOTE | 2018-07-13 14:42 | EEG/EMG/Oth Biometrics Report ---
EEG Procedure Report Date of procedure: 07/13/18 EEG Procedure: Routine EEG Procedure Note: This is a report of a 21 channel bipolar and referential montage EEG. A posterior dominant rhythm of 10 Hz moderate voltage alpha frequencies identified symmetrically in the posterior head regions. This rhythm attenuates symmetrically with eye opening. Occasional beta frequencies are seen intermixed in the posterior dominant rhythm. Hyperventilation is not performed during the recording. There is no sleep architecture identified during the study. Photic stimulations performed and does not produce a driving response. The EKG rhythm strip reveals sinus bradycardia at 48 bpm. Impressions: This EEG recording is within normal limits. There is no evidence of epileptiform activity identified during the study. Comment: The EKG rhythm strip reveals sinus bradycardia at 48 bpm. I would recommend considering extended Holter monitoring as an outpatient to determine whether or not sinus bradycardia might be an etiology for further loss of consciousness. A normal EEG does not preclude a diagnosis of seizure or epilepsy. If the clinical suspicion for seizure activity is high, serial EEGs or perhaps a prolonged recording may increase the yield. Please correlate clinically.
--- NOTE | 2018-07-13 16:12 | Electrocardiograph Report ---
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
--- NOTE | 2018-07-13 16:50 | Electrocardiograph Report ---
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
== END 2018-07-13 16:32 | disposition home or self-care (01) ==
LOC: EMEROOARM 21:04 → 3BNU 21:04
PROVIDERS: ADMIT Family Medicine; ATTEND Family Medicine